=== PATIENT | male | born 1990 | race Hispanic/Latino ===

== ENCOUNTER 2017-11-11 13:45 | Emergency (ER) | payer BC ==
[2017-11-11] MEDS ORDERED: LIDOCAINE HCL 1% 20 ML VIAL ONE (14:25)
== END 2017-11-11 14:54 | disposition home or self-care (01) ==
LOC: EDH 13:45
DX: L02.212 Cutaneous abscess of back [any part, except buttock and flank] (principal); B95.62 Methicillin resistant Staphylococcus aureus infection as the cause of diseases classified elsewhere
CPT/HCPCS: 10060; 12001

== ENCOUNTER 2019-08-22 11:49 | Emergency (ER) | payer BC, OTHER ==
[2019-08-22] MEDS ORDERED: ACETAMINOPHEN EXTRA STRENGTH 500 MG TABLET ONE (12:20)
[2019-08-22] MEDS ORDERED: IBUPROFEN 600 MG TABLET ONE (12:20)
[2019-08-22 12:34] LABS: RAPID GROUP A STREP NEGATIVE (NEGATIVE)
== END 2019-08-22 13:21 | disposition home or self-care (01) ==
LOC: EDH 11:49
DX: J09.X2 Influenza due to identified novel influenza A virus with other respiratory manifestations (principal)
CPT/HCPCS: 87804; 87880

== ENCOUNTER 2024-11-14 05:26 | Emergency (ER) | payer SELFPAY ==
[~2024-11-14] VITALS: Ht 182.9 cm; Wt 141.5 kg
[2024-11-14 05:52] VITALS: BP 126/80; PULSE 78; RESP 15; TEMP 98.1; O2SAT 97
[2024-11-14] MEDS ORDERED: HYD25 PO (06:01)
--- NOTE | 2024-11-14 06:01 | ERN ---
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 Sometimes he feels chest pain associated with palpitation. Initial workup in triage vital signs within normal limits, heart rate was in the 80s, sinus rhythm. Allergies: Coded Allergies: No Known Drug Allergies (Unverified Allergy, Unknown, 11/14/24) Home Meds Active Scripts Hydroxyzine HCl (Atarax) 25 Mg Tab, 1 CAP PO TID for anxiety for 10 Days, #30 CAP 0 Refills Prov:PEDRO PABLO FONSECA MD 11/14/24 Past Medical History Past Medical History: No Pertinent History Surgical History: None Review of System Dictation NEGATIVE EXCEPT PER HPI Constitutional: Negative for fever,chills, and weight loss Eyes: Negative for injury, pain,redness, and discharge ENT: Negative for injury,pain or swelling Cardiovascular: Reports palpitation. Respiratory: Negative for shortness of breath, cough, and wheezing, Abdomen/GI: Negative for abdominal pain, nausea, vomiting, diarrhea, and constipation Back: Negative for injury and pain : Negative for injury, bleeding and discharge MS/Extremity: Negative for injury and deformity Skin: Negative for rash, and discoloration Neuro: Negative for headache, weakness, numbness, tingling, and seizure Psych: Negative for suicide ideation, homicidal ideation, and hallucinations Initial Vital Sign VS Vital Signs Date Time Temp Pulse Resp B/P (MAP) Pulse Ox O2 Delivery O2 Flow Rate FiO2 11/14/24 05:46 96.8 85 16 146/99 0 Room Air 0 11/14/24 05:52 21 Physical Exam Dictation General: awake, alert, NAD Head/Face: Normocephalic, atraumatic Eyes: PERRL, EOMI, vision at baseline ENT: oral cavity clear, TMs clear, no signs of infection Neck: Trachea midline, supple, no nuchal rigidity Cardiovascular: RRR, normal S1/S2, No MRGs, no JVD Respiratory: CTAB, no respiratory distress, No rales or wheezes Abdomen: Soft , no tender Skin: Warm, dry, normal turgor, no rash MS/Extremity: Pulses equal, no cyanosis, neurovascular intact, FROM Neuro: COAx4, GCS 15, strength 5/5, CN 2-12 intact, normal cerebellar exam, normal gait, Psych: Normal behavior, mood, and affect normal Results (Laboratory/Radiology) Laboratory/Radiology Laboratory Tests Test 11/14/24 06:04 Troponin I High Sensitivity 8 ng/L (4-75) EKG Comment: Sinus rhythm, rate 72, FL 149, QT 386. QRS 97. ED Course ED Course Orders Procedure Category Date Status Time Troponin I High LAB 11/14/24 Complete Sensitivity 05:51 Lorazepam 1 Mg PHA 11/14/24 Complete (Ativan) 06:00 Current Medications Medications (Trade) Dose Ordered Sig/Nathanael Route PRN Reason Start Time Stop Time Status Last Admin Dose Admin Lorazepam (AtiVAN) 1 mg ONCE ONCE PO 11/14/24 06:00 11/14/24 06:01 DC 11/14/24 06:06 Vital Signs Date Time Temp Pulse Resp B/P (MAP) Pulse Ox O2 Delivery O2 Flow Rate FiO2 11/14/24 05:52 98.1 78 15 126/80 97 Room Air* 0 21 11/14/24 05:46 96.8 85 16 146/99 0 Room Air 0 Medical Decision Making MDM 34-year-old male who presented with a chest discomfort/palpitation, he is reports a lot of anxiety in his life. Anxiety Tachycardia due to anxiety EKG within normal limits sinus rhythm rate 72 We will do a troponin level check. Ativan 1 mg oral ordered. Police level was within normal limits. If results within normal limits patient he will be discharged home with recommended to follow up with his PCP in next DX & DISP Disposition: Discharge Departure Impression: Primary Impression: Anxiety Additional Impression: Morbid obesity with BMI of 40.0-44.9, adult Condition: Stable Scripts Hydroxyzine HCl (Atarax) 25 Mg Tab 1 CAP PO TID for anxiety for 10 Days, #30 CAP 0 Refills Prov: PEDRO PABLO FONSECA MD 11/14/24 Additional Instructions: RETURN TO ER FOR ANY ACUTE OR WORSENING SYMPTOMS. FOLLOW-UP IN 1-2 DAYS WITH PRIMARY PROVIDER FOR RECHECK OF TODAY'S SYMPTOMS. Referrals: CHIARA SOTO (PCP) Time of Disposition: 06:33 PEDRO PABLO FONSECA MD Nov 14, 2024 06:01
[2024-11-14] MEDS: LORazepam 1 MG TABLET PO ONE (06:06)
--- NOTE | 2024-11-14 07:06 | EKG ---
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
== END 2024-11-14 06:54 | disposition home or self-care (01) ==
LOC: EDH 05:26
DX: F41.9 Anxiety disorder, unspecified (principal); E66.01 Morbid (severe) obesity due to excess calories; Z68.41 Body mass index [BMI] 40.0-44.9, adult
CPT/HCPCS: 84484; 93005; 99284